=== PATIENT | female | born 1975 | race African-American/Black ===

== ENCOUNTER 2024-05-18 13:23 | Inpatient (IN) | payer OTHER ==
[2024-05-18 15:35] VITALS: BMI 22.1
[2024-05-18] MEDS ORDERED: LOPERAMIDE HCL 2 MG CAPSULE PO PRN (17:00)
[2024-05-18] MEDS ORDERED: ONDANSETRON *ODT* 4 MG TABLET SL PRN (17:00)
[2024-05-18] MEDS ORDERED: IBUPROFEN 600 MG TABLET (FP) PO PRN (17:00)
[2024-05-18] MEDS ORDERED: MAG HYDROX/AL HYDROX/SIMETH 30 ML UNIT-DOSE CUP PO PRN (17:00)
[2024-05-18] MEDS ORDERED: BENZONATATE 200 MG CAPSULE PO PRN (17:00)
[2024-05-18] MEDS ORDERED: POLYETHYLENE GLYCOL (HEALTHYLAX) 3350 17 GM PACKET PO PRN (17:00)
[2024-05-18] MEDS ORDERED: guaiFENesin 600 MG TABLET.ER (FP) PO PRN (17:00)
[2024-05-18] MEDS ORDERED: BISMUTH SUBSALICYLATE 524 MG/30 ML PO PRN (17:00)
[2024-05-18] MEDS ORDERED: DICYCLOMINE HCL 10 MG CAPSULE PO PRN (17:00)
[2024-05-18] MEDS ORDERED: MAGNESIUM HYDROX 2400MG/30ML ORAL SUSPENSION 30 ML CUP PO PRN (17:00)
[2024-05-18] MEDS ORDERED: BENZOCAINE/MENTHOL (CHLORASEPTIC ) LOZENGE MM PRN (17:00)
[2024-05-18] MEDS ORDERED: ACETAMINOPHEN 325 MG TABLET (FP) PO PRN (17:00)
[2024-05-18] MEDS ORDERED: IBUPROFEN 400 MG TABLET (FP) PO PRN (17:00)
[2024-05-18] MEDS: MELATONIN 5 MG TABLETS PO SCH (22:06)
[2024-05-18] MEDS: THIAMINE 100 MG TABLET PO SCH (22:06)
[2024-05-19 08:58] LABS: POTASSIUM 3.6 mmol/L (3.5-5.1)
[2024-05-19 09:00] LABS: HEMATOCRIT 26.9 % (32.4-45.2); HEMOGLOBIN 8.9 GM/dL (10.7-15.3); MCH 37.7 pg (25.7-33.7); MCHC 33.2 g/dl (32.0-36.0); MEAN CELL VOLUME 113.5 fl (80-96); MEAN PLT VOLUME 7.8 fl (7.5-11.1); PLATELET COUNT 178 10^3/uL (134-434); RBC 2.37 M/mm3 (3.60-5.2); RDW 20.3 % (11.6-15.6); WHITE BLOOD COUNT 3.6 K/mm3 (4.0-10.0)
[2024-05-19 09:02] LABS: ALBUMIN 3.2 g/dl (3.4-5.0); BLOOD UREA NITROGEN 8.8 mg/dL (7-18); CALCIUM 8.5 mg/dL (8.5-10.1)
[2024-05-19 09:05] LABS: CREATININE 0.7 mg/dL (0.55-1.3)
[2024-05-19 09:07] LABS: BILIRUBIN,TOTAL 0.8 mg/dL (0.2-1); TOT PROT 6.5 g/dl (6.4-8.2)
[2024-05-19] MEDS: PRENATAL VITAMINS W/ FOLIC ACID TABLET (FP) PO SCH (10:56)
[2024-05-19] MEDS ORDERED: LORazepam 1 MG TABLET PO PRN (14:10)
[2024-05-19] MEDS ORDERED: NICOTINE 14 MG/24 HOURS TOPICAL PATCH TD PRN (14:27)
[2024-05-19] MEDS: METHOCARBAMOL 500 MG TABLET PO PRN (15:07)
[2024-05-19] MEDS: hydrOXYzine PAMOATE 25 MG CAPSULE (FP) PO PRN (15:07)
[2024-05-19] MEDS: LORazepam 2 MG TABLET PO SCH (17:32)
[2024-05-19] MEDS: SUVOREXANT 10 MG TABLET PO PRN (22:16)
[2024-05-20] MEDS: LORazepam 1 MG TABLET PO SCH (06:00)
[2024-05-21] MEDS: LORazepam 0.5 MG TABLET PO SCH (05:59)
[2024-05-21 12:18] LABS: IRON SERUM 41 ug/dL (50-175); SGOT/AST 56 U/L (15-37)
[2024-05-21 12:19] LABS: TOTAL IRON BINDING CAPACITY 433 ug/dL (250-450)
[2024-05-22] MEDS: LORazepam 0.5 MG TABLET PO ONE (05:42)
[2024-05-22 06:37] VITALS: BP 121/72; PULSE 86; RESP 18; TEMP 97.2
== END 2024-05-22 09:35 | disposition home or self-care (01) | DRG 774 ==
LOC: YASAS 13:23 → Y3N 17:26 → Y6N 21:27
PROVIDERS: ADMIT Allergy & Immunology; ATTEND Psychiatry & Neurology Pain Medicine
PROC: HZ2ZZZZ Detoxification Services for Substance Abuse Treatment (ICD-10-PCS; principal; 2024-05-18)
DX: F10.230 Alcohol dependence with withdrawal, uncomplicated (principal); F14.20 Cocaine dependence, uncomplicated; F12.20 Cannabis dependence, uncomplicated; F17.213 Nicotine dependence, cigarettes, with withdrawal; F19.282 Other psychoactive substance dependence with psychoactive substance-induced sleep disorder; F19.280 Other psychoactive substance dependence with psychoactive substance-induced anxiety disorder; F41.9 Anxiety disorder, unspecified; M54.50 Low back pain, unspecified; G89.29 Other chronic pain
CPT/HCPCS: 36415; 80053; 80305; 80307; 81025; 82607; 82728; 82747; 83540; 83550; 84450; 85014; 85027; 86780; 93005; 93010